=== PATIENT | female | born 1960 | race Two or more races ===

== ENCOUNTER → 2022-01-12 | Outpatient (CLI) | payer OTHER ==
[~2022-01-12] MED LIST: ALBUTEROL SULF 2.5 MG/0.5ML(0.5%) NEB SOLN ONE; SODIUM CHLORIDE 0.9 % NEB SOLN 3ML NEB ONE
== END | disposition home or self-care (01) ==
LOC: RT 10:03
PROVIDERS: ATTEND Internal Medicine Pulmonary Disease
DX: J44.9 Chronic obstructive pulmonary disease, unspecified (principal); R06.00 Dyspnea, unspecified
CPT/HCPCS: 94060; 94727; 94729

== ENCOUNTER 2024-11-04 07:49 | Inpatient (IN) | payer OTHER, MEDICAID ==
[~2024-11-04] VITALS: Ht 160 cm; Wt 86.0 kg
[2024-11-04] VITALS (7 sets, daily range): BP systolic 126–140; BP diastolic 71–78; PULSE 65–76; RESP 15–20; TEMP 97–98.2; O2SAT 97–100
--- NOTE | 2024-11-04 08:57 | ED.PDOC ---
History of Present Illness HPI Comments 64 year old female presents to the ED with a chief complaint of hyperglycemia onset today (11/04/24). Patient states she checked glucose this morning, it was reading "high." Patient states she was recently switched to different insulin, has been taking it. She noticed bilateral lower extremity swelling. She also states she fell about 1 week ago, since then has been experiencing back pain. Patient is a poor historian. PMHx CPOD, DM. Denies chest pain, shortness of breath, headache, blurry vision, nausea, vomiting, diarrhea. No other symptoms or modifying factors present at this time. Chief Complaint: Hyperglycemia Time Seen by MD: 08:35 Reviewed Notes: Medications, Allergies Allergies: Uncoded Allergies: VACCINES (Allergy, Unknown, 11/04/24) Information Source: Patient Mode of Arrival: Wheelchair Severity: Moderate Timing: Weeks Duration: Since onset Prehospital treatment: Pain Meds Past Medical History PAST MEDICAL HISTORY: COPD, DM Surgical History: Denies all surgeries FIELD CLERK History: No Pertinent FIELD CLERK History Family History Family History: Reviewed,noncontributory to illness, No family hx of Cancer, No family hx of DM, No family hx of Heart kirsty, No family hx of HTN, No family hx ofKidney kirsty, No family hx of Liver kirsty, No family hx of Lung kirsty, No family hx of Stroke Social History Smoker: Non-Smoker Alcohol: Denies ETOH Use Drugs: Denies Drug Use Lives In: Home Constitutional: denies: chills, diaphoresis, fatigue, fever, malaise, sweats, weakness, others EENTM: denies: blurred vision, double vision, ear bleeding, ear discharge, ear drainage, ear pain, ear ringing, eye pain, eye redness, hearing loss, mouth pain, mouth swelling, nasal discharge, nose bleeding, nose congestion, nose pain, photophobia, tearing, throat pain, throat swelling, voice changes, others Respiratory: denies: cough, hemoptysis, orthopnea, SOB at rest, shortness of breath, SOB with excertion, stridor, wheezing, others Cardiovascular: denies: chest pain, dizzy spells, diaphoresis, Dyspnea on exertion, edema, irregular heart beat, left arm pain, lightheadedness, palpitations, PND, syncope, others Gastrointestinal: denies: abdomen distended, abdominal pain, blood streaked bowels, constipated, diarrhea, dysphagia, difficulty swallowing, hematemesis, melena, nausea, poor appetite, poor fluid intake, rectal bleeding, rectal pain, vomiting, others Genitourinary: denies: abnormal vagina bleeding, burning, dyspareunia, dysuria, flank pain, frequency, hematuria, incontinence, pain, , vagina discharge, urgency, others Neurological: denies: dizziness, fainting, headache, left sided numbness, left sided weakness, numbness, paresthesia, pre-existing deficit, right sided numbness, right sided weakness, seizure, speech problems, tingling, tremors, weakness, others Musculoskeletal: reports: back pain, others (bilateral lower extremity swel ling); denies: gout, joint pain, joint swelling, muscle pain, muscle stiffness, neck pain Integumetry: denies: bruises, change in color, change in hair/nails, dryness, laceration, lesions, lumps, rash, wounds, others Allergic/Immunocompromised: denies: Difficulty Healing, Frequent Infections, Hives, Itching, others Hematologic/Lymphatic: denies: anemia, blood clots, easy bleeding, easy bruising, swollen glands, others Endocrine: reports: others (hyperglycemia); denies: excessive hunger, excessive sweating, excessive thirst, excessive urination, flushing, intolerance to cold, intolerance to heat, unexplained weight gain, unexplained weight loss Psychiatric: denies: anxiety, bipolar disorder, depression, hopeless, panic disorder, schizophrenia, sleepless, suicidal, others All Other Systems: Reviewed and Negative Physical Exam General Appearance: No Apparent Distress, Normal HEENT: Normal ENT Inspection, Pharynx Normal, TMs Normal Neck: Full Range of Motion, Non-Tender, Normal, Normal Inspection Respiratory: Chest Non-Tender, Lungs Clear, No Accessory Muscle Use, No Respiratory Distress, Normal Breath Sounds Cardiovascular: No Edema, No JVD, No Murmur, No Gallop, Normal Peripheral Pulses, Regular Rate/Rhythm Breast Exam: Deferred Gastrointestinal: No Organomegaly, Non Tender, No Pulsatile Mass, Normal Bowel Sounds, Soft Genitalia: Deferred Pelvic: Deferred Rectal: Deferred Extremities: No calf tenderness, Normal capillary refill, Normal inspection, Normal range of motion, Non-tender, No pedal edema Musculoskeletal : Apperance: Normal Neurologic: Alert, rn compliance II-XII nml as Tested, No Motor Deficits, Normal Affect, Normal Mood, No Sensory Deficits Cerebellar Function: Normal Reflexes: Normal Skin: Dry, Normal Color, Warm Lymphatic: No Adenopathy Was a procedure done? Was a procedure done?: No Differential Dx Considerations may include: Electrolyte abnormalities, infectious etiology, viral syndrome, uncontrolled diabetes X-Ray, Labs, Meds, VS Vital Signs Date Time Temp Pulse Resp B/P (MAP) Pulse Ox O2 Delivery O2 Flow Rate FiO2 11/04/24 10:58 75 118/57 (77) 100 11/04/24 08:48 76 16 94 Room Air 11/04/24 08:48 98.2 76 16 135/79 (97) 94 98.2 11/04/24 08:11 98.5 78 20 138/83 (101) 94 98.5 Lab Test 11/04/24 09:45 11/04/24 09:40 11/04/24 09:00 Range/Units Troponin I High Sensitivity 10 8 </=34 ng/L Urine Color Colorless Yellow Urine Clarity Clear Clear Urine pH 5.0 5.0-9.0 Urine Specific [place] 1.028 1.001-1.035 Urine Protein Negative Negative Urine Ketones Negative Negative Urine Blood Negative Negative /uL Urine Nitrite Negative Negative Urine Bilirubin Negative Negative Urine Urobilinogen Normal Negative mg/dL Urine Leukocyte Esterase Negative Negative /uL Urine RBC <1 0 - 4 /hpf Urine Microscopic WBC 1 0-5 /HPF Urine Squamous Epithelial Cells Few <5 /hpf Urine Bacteria None seen None Seen /hpf Urine Glucose 4+ H Normal mg/dL White Blood Count 4.9 4.4-10.8 10^3/uL Red Blood Count 4.54 4.0-5.20 10^6/uL Hemoglobin 13.7 12.2-16.2 g/dL Hematocrit 40.9 36.0-46.0 % Mean Corpuscular Volume 90.1 80.0-100.0 fL Mean Corpuscular Hemoglobin 30.2 28.0-32.0 pg Mean Corpuscular Hemoglobin Concent 33.5 32.0-36.0 g/dL Red Cell Distribution Width 13.5 11.8-14.3 % Platelet Count 156 140-450 10^3/uL Mean Platelet Volume 9.9 6.9-10.8 fL Neutrophils (%) (Auto) 71.0 37.0-80.0 % Lymphocytes (%) (Auto) 19.6 10.0-50.0 % Monocytes (%) (Auto) 8.5 0.0-12.0 % Eosinophils (%) (Auto) 0.5 0.0-7.0 % Basophils (%) (Auto) 0.4 0.0-2.0 % Neutrophils # (Auto) 3.5 1.6-8.6 10 ^3/uL Lymphocytes # (Auto) 1.0 0.4-5.4 10 ^3/uL Monocytes # (Auto) 0.4 0-1.3 10 ^3/uL Eosinophils # (Auto) 0 0-0.8 10 ^3/uL Basophils # (Auto) 0 0-0.2 10 ^3/uL Nucleated Red Blood Cells 0.1 % Sodium Level 136 136-145 mmol/L Potassium Level 4.4 3.5-5.1 mmol/L Chloride Level 101 98-107 mmol/L Carbon Dioxide Level 26 20-31 mmol/L Anion Gap 9 5-15 Blood Urea Nitrogen 21 9-23 mg/dL Creatinine 1.17 H 0.550-1.02 mg/dL Glomerular Filtration Rate Calc 51 >90 mL/min BUN/Creatinine Ratio 17.9 10.0-20.0 Serum Glucose 487 *H 74-106 mg/dL Calcium Level 11.1 H 8.7-10.4 mg/dL B-Type Natriuretic Peptide 85.42 0-100 pg/mL Current Medications Medications (Trade) Dose Ordered Sig/Yue Route Start Time Stop Time Status Last Admin Sodium Chloride 1,000 ml @ 1,000 mls/hr Q1H ONCE IV 11/04/24 10:00 11/04/24 10:59 DC 11/04/24 10:08 Insulin Human Regular (InsuLIN R) 5 units ONCE ONCE IV 11/04/24 10:00 11/04/24 10:01 DC 11/04/24 10:18 [place] [id number] Ph: [phone] DIAGNOSTIC IMAGING Diagnostic Imaging Report : [id number] Signed PATIENT: DOLORES HIGGINS ACCT: [id number] UNIT: [id number] : 1960 LOC: ER ROOM / BED: / AGE / SEX: 64 / F ADM STATUS: REG ER SERVICE 0850 ORDERING PHYSICIAN: KARL ROMANO MD PROCEDURE(s): CXRP - CHEST PORTABLE REASON: swelling ORDER NUMBER(s): [id number], ACCESSION NUMBER(s): [id number] CHEST RADIOGRAPH Indication: swelling Technique: Single frontal view of the chest was obtained Comparison: None FINDINGS: Lines and Tubes: None Lungs: Left basilar opacity. Right lung is clear. Pleura: No effusion. No pneumothorax. Cardiomediastinal contours: Unremarkable Bones: No acute osseous abnormality. IMPRESSION: 1. Left basilar opacity which may reflect atelectasis or pneumonia. ATED BY: LUZ MARINA MARCELO MD DICTATED DATE/TIME: 11/04/24 101 SIGNED BY: LUZ MARINA MARCELO MD SIGNED DATE/TIME: 11/04/24 101 CC: Time of 1ST Reevaluation: 09:05 Reevaluation 1ST: Unchanged Patient Education/Counseling: Diagnosis, Treatment, Prognosis Family Education/Counseling: No Family Present Departure 1 Departure Time of Disposition: 11:10 (Patient presents with a uncontrolled diabetes and left lower lobe pneumonia. Patient is clinically volume overloaded so we will not give a fluid bolus. We will admit patient for further workup and expert consultation) Impression: Primary Impression: Uncontrolled diabetes mellitus Qualified Codes: E11.65 - Type 2 diabetes mellitus with hyperglycemia Additional Impression: Left lower lobe pneumonia Qualified Codes: J18.9 - Pneumonia, unspecified organism Disposition: ADMITTED INPATIENT Admit to: Med Surg Condition: Serious Critical Care Note Critical Care Time?: Yes Critical care comment: Uncontrolled diabetes Authorized and Performed by: Karl Romano MD Total critical care time: Approximately 39 minutes Due to a high probability of clinically significant, life threatening deterioration, the patient required my highest level of preparedness to intervene emergently and I personally spent this critical care time directly and personally managing the patient. This critical care time included obtaining a history; examining the patient; pulse oximetry; ordering and review of studies; arranging urgent treatment with development of a management plan; evaluation of patient's response to treatment; frequent reassessment; and, discussions with other providers. This critical care time was performed to assess and manage the high probability of imminent, life-threatening deterioration that could result in multi-organ failure. It was exclusive of separately billable procedures and treating other patients and teaching time. Please see my other sections and the rest of the note for further information on patient assessment and treatment. Stability Stability form required: No I personally scribed for KARL ROMANO MD ([email or web address]) on 11/04/24 at 08:57. Electronically submitted by Sadie Simons ([email or web address]). I personally scribed for KARL ROMANO MD ([email or web address]) on 11/04/24 at 10:16. Electronically submitted by Sadie Simons ([email or web address]). KARL ROMANO MD Nov 04, 2024 08:57
[2024-11-04 09:10] LABS: Basophils # (auto) 0 10 ^3/uL (0-0.2); Basophils % (auto) 0.4 % (0.0-2.0); Eosinophils # (auto) 0 10 ^3/uL (0-0.8); Eosinophils % (auto) 0.5 % (0.0-7.0); Hematocrit 40.9 % (36.0-46.0); Hemoglobin 13.7 g/dL (12.2-16.2); Lymphocytes % (auto) 19.6 % (10.0-50.0); Mean Corpuscular Hemoglobin 30.2 pg (28.0-32.0); Mean Corpuscular Hgb Conc. 33.5 g/dL (32.0-36.0); Mean Corpuscular Volume 90.1 fL (80.0-100.0); Monocytes # (auto) 0.4 10 ^3/uL (0-1.3); Monocytes % (auto) 8.5 % (0.0-12.0); Neutrophils # (auto) 3.5 10 ^3/uL (1.6-8.6); Nucleated Red Blood Cells % 0.1 %; Platelet Count (auto) 156 10^3/uL (140-450); Red Blood Cells 4.54 10^6/uL (4.0-5.20); Red Cell Distribution Width 13.5 % (11.8-14.3); White Blood Cell 4.9 10^3/uL (4.4-10.8)
[2024-11-04 09:19] LABS: Anion Gap 9 (5-15); Carbon Dioxide 26 mmol/L (20-31); Chloride 101 mmol/L (98-107); Potassium 4.4 mmol/L (3.5-5.1); Sodium 136 mmol/L (136-145)
[2024-11-04 09:20] LABS: Calcium 11.1 mg/dL (8.7-10.4)
[2024-11-04 09:25] LABS: BUN/Creatinine Ratio 17.9 (10.0-20.0); Blood Urea Nitrogen 21 mg/dL (9-23)
[2024-11-04 09:35] LABS: Glucose 487 mg/dL (74-106)
[2024-11-04] MEDS: SODIUM CHLORIDE 0.9% 1,000 ML IV ONE (10:08)
--- NOTE | 2024-11-04 10:15 | DVH ---
CHEST RADIOGRAPH Indication: swelling Technique: Single frontal view of the chest was obtained Comparison: None FINDINGS: Lines and Tubes: None Lungs: Left basilar opacity. Right lung is clear. Pleura: No effusion. No pneumothorax. Cardiomediastinal contours: Unremarkable Bones: No acute osseous abnormality. IMPRESSION: 1. Left basilar opacity which may reflect atelectasis or pneumonia.
[2024-11-04] MEDS: InsuLIN REG 1unit/0.01ml Soln (100units/ml) IV ONE (10:18)
[2024-11-04 10:37] LABS: Urine Bacteria None Seen /hpf (None Seen)
[2024-11-04 10:45] LABS: Urine Blood Negative /uL (Negative); Urine Clarity Clear (Clear); Urine Color Colorless (Yellow); Urine Protein, UAD Negative (Negative); Urine Specific Gravity 1.028 (1.001-1.035); Urine Squamous Epithelial Cell FEW /hpf (<5); Urine Urobilinogen Normal (Negative); Urine WBC 1 /HPF (0-5)
[2024-11-04] MEDS: VANCOMYCIN 1GM/200ML PM 200 ML IV ONE (11:26)
[2024-11-04] MEDS: AZITHROMYCIN 250 MG TAB PO ONE (11:26)
[2024-11-04] MEDS: HYDROcodone-ACET 5/325MG TAB PO ONE (11:42)
[2024-11-04] MEDS: CEFEPIME 2GM/50ML NS 50 ML IV ONE (12:40)
[2024-11-04] MEDS ORDERED: ONDANSETRON HCL 4 MG/2 ML VIAL IV PRN (14:15)
[2024-11-04] MEDS ORDERED: DOCUSATE SOD 100 MG CAP PO PRN (14:15)
[2024-11-04] MEDS ORDERED: DEXTROSE (50%) 50ML SYRG IV PRN (14:15)
--- NOTE | 2024-11-04 14:48 | DVHHP2 ---
History of Present Illness Reason for Visit: elevated blood sugar levels History of Present Illness Radha Diaz is a 64-year-old female with past medical history of COPD, diabetes, and home oxygen use, who came to the hospital for elevated blood sugar levels. Patient states her problems began about 1 week ago when she fell. She states she was at home and attempted to go over a baby gate and fell onto her floor. She did not seek medical attention at the time because she just felt sore, she didn't think anything was broken. Ever since she fell she says her sugars have been increasing and she started becoming short of breath. On assessment patient is breathing shallow, she states it is due to pain. Patient doesn't think anything is broken, she is just experiencing generalized pain. She is having difficulty getting comfortable. Patient also states that she recently had surgery on both her eyes for glaucoma. She states she had one eye done in June and the other in July. During that time she was on steroids for a little over 3 weeks. She states she finished her steroids about 1 week ago. Pulmonary: COPD, Other (Home oxygen use) Endocrine: Diabetes, Hypothyroidism Past Surgical History: Other (left knee, glaucoma-bilateral eyes), Tubal Ligation, Tonsillectomy Family History: None Smoke: No ALCOHOL: none Drugs: None Lives: Alone Domestic Violence: Neg Review of Systems Constitutional: Yes: Other (elevated blood sugar levels); No: Fever, Chills, Sweats, Weakness, Malaise Eyes: No: Pain, Vision change, Conjunctivae inflammation, Eyelid inflammation, Other, Redness ENT: No: Ear pain, Ear discharge, Nose pain, Nose discharge, Nose congestion, Mouth pain, Mouth swelling, Throat pain, Throat swelling, Other Respiratory: Cough, Shortness of breath, SOB with excertion, Wheezing, Pleuritic Pain; No: Dry, Hemoptysis, Sputum, Wheezing, Other Cardiovascular: No: Chest Pain, Palpitations, Orthopnea, Paroxysmal Noc. Dyspnea, Edema, Lt Headedness, Other Gastrointestinal: No: Nausea, Vomiting, Abdominal Pain, Diarrhea, Constipation, Melena, Hematochezia, Other Genitourinary: No Dysuria, No Frequency, No Incontinence, No Hematuria, No Retention, No Other Musculoskeletal: No: other, neck pain, shoulder pain, arm pain, back pain, hand pain, leg pain, foot pain Skin: No: Rash, Lesions, Jaundice, Bruising, Other Neurological: No: Weakness, Numbness, Incoordination, Change in speech, Confusion, Seizures, Other Allergies: Uncoded Allergies: VACCINES (Allergy, Unknown, 11/04/24) Exam Vital Signs Vital Signs Date Time Temp Pulse Resp B/P (MAP) Pulse Ox O2 Delivery O2 Flow Rate FiO2 11/04/24 13:32 70 18 99 Nasal Cannula* 2 28 11/04/24 13:00 140/71 (94) 11/04/24 08:48 98.2 98.2 General Appearance: Alert, Oriented X3, Cooperative, mild distress HEENT: Atraumatic, PERRLA Respiratory: Other (Diminished breath sounds) Cardiovascular: Regular rate, Normal S1, Normal S2, No murmurs Abdominal: Normal bowel sounds, Soft, No tenderness, No hepatospenomegaly Extremities: No clubbing, No cyanosis, No edema, Normal pulses, No tenderness/swelling Skin: No rashes, No breakdown, No significant lesion Neuro: Normal gait, Normal speech, Strength at 5/5 X4 ext, Normal tone Psych/Mental Status: Mental status NL, Mood NL Labs/Xrays Labs Test 11/04/24 11:35 11/04/24 11:15 11/04/24 11:05 11/04/24 09:40 Range/Units Troponin I High Sensitivity 9 </=34 ng/L Lactic Acid Level 1.8 0.4-2.0 mmol/L POC Glucose 305 H 70-106 mg/dl Urine Color Colorless Yellow Urine Clarity Clear Clear Urine pH 5.0 5.0-9.0 Urine Specific [place] 1.028 1.001-1.035 Urine Protein Negative Negative Urine Ketones Negative Negative Urine Blood Negative Negative /uL Urine Nitrite Negative Negative Urine Bilirubin Negative Negative Urine Urobilinogen Normal Negative mg/dL Urine Leukocyte Esterase Negative Negative /uL Urine RBC <1 0 - 4 /hpf Urine Microscopic WBC 1 0-5 /HPF Urine Squamous Epithelial Cells Few <5 /hpf Urine Bacteria None seen None Seen /hpf Urine Glucose 4+ H Normal mg/dL Test 11/04/24 09:00 Range/Units White Blood Count 4.9 4.4-10.8 10^3/uL Red Blood Count 4.54 4.0-5.20 10^6/uL Hemoglobin 13.7 12.2-16.2 g/dL Hematocrit 40.9 36.0-46.0 % Mean Corpuscular Volume 90.1 80.0-100.0 fL Mean Corpuscular Hemoglobin 30.2 28.0-32.0 pg Mean Corpuscular Hemoglobin Concent 33.5 32.0-36.0 g/dL Red Cell Distribution Width 13.5 11.8-14.3 % Platelet Count 156 140-450 10^3/uL Mean Platelet Volume 9.9 6.9-10.8 fL Neutrophils (%) (Auto) 71.0 37.0-80.0 % Lymphocytes (%) (Auto) 19.6 10.0-50.0 % Monocytes (%) (Auto) 8.5 0.0-12.0 % Eosinophils (%) (Auto) 0.5 0.0-7.0 % Basophils (%) (Auto) 0.4 0.0-2.0 % Neutrophils # (Auto) 3.5 1.6-8.6 10 ^3/uL Lymphocytes # (Auto) 1.0 0.4-5.4 10 ^3/uL Monocytes # (Auto) 0.4 0-1.3 10 ^3/uL Eosinophils # (Auto) 0 0-0.8 10 ^3/uL Basophils # (Auto) 0 0-0.2 10 ^3/uL Nucleated Red Blood Cells 0.1 % Sodium Level 136 136-145 mmol/L Potassium Level 4.4 3.5-5.1 mmol/L Chloride Level 101 98-107 mmol/L Carbon Dioxide Level 26 20-31 mmol/L Anion Gap 9 5-15 Blood Urea Nitrogen 21 9-23 mg/dL Creatinine 1.17 H 0.550-1.02 mg/dL Glomerular Filtration Rate Calc 51 >90 mL/min BUN/Creatinine Ratio 17.9 10.0-20.0 Serum Glucose 487 *H 74-106 mg/dL Calcium Level 11.1 H 8.7-10.4 mg/dL B-Type Natriuretic Peptide 85.42 0-100 pg/mL CHEST RADIOGRAPH FINDINGS: Lines and Tubes: None Lungs: Left basilar opacity. Right lung is clear. Pleura: No effusion. No pneumothorax. Cardiomediastinal contours: Unremarkable Bones: No acute osseous abnormality. IMPRESSION: 1. Left basilar opacity which may reflect atelectasis or pneumonia. Assessment/Plan Assessment/Plan Assessment: Left lower lobe pneumonia, Uncontrolled diabetes, COPD, Hypothyroidism, Plan: Admit to Med-Surg, IV antibiotics, IV steroids, Breathing treatments, Supplemental oxygen as needed, Accu checks Q AC&HS with sliding scale, A1c, Home medications reconciled, Plan discussed with: Patient My Orders Orders - MYAH CHU Procedure Category Date Status Time Admit ADMIT 11/04/24 Verified 14:03 Code Status CODE 11/04/24 Verified 14:03 2 Gm Sodium Diet DIET 11/04/24 Verified Dinner Ondansetron Hcl PHA 11/04/24 Verified (Zofran) 14:15 Date of Service: Nov 04, 2024 Billing Provider: MYAH CHU Common Visit Codes: [id number] INP/OBS CARE (MOD) MYAH CHU Nov 04, 2024 14:48
[2024-11-04] MEDS: ACCU-CHEK COMFORT CURVE STRIP VI SCH (17:00)
[2024-11-04] MEDS ORDERED: ALBUAER3 IN (17:35)
[2024-11-04] MEDS ORDERED: POTA-228 PO (17:35)
[2024-11-04] MEDS ORDERED: ASPI1TAB20 PO (17:35)
[2024-11-04] MEDS ORDERED: FLUT1AER17 IN (17:35)
[2024-11-04] MEDS ORDERED: ALEN70TA74 PO (17:35)
[2024-11-04] MEDS ORDERED: FURO20TA4 GT (17:35)
[2024-11-04] MEDS ORDERED: CITA-77 PO (17:35)
[2024-11-04] MEDS ORDERED: IPRAAER6 IN (17:35)
[2024-11-04] MEDS ORDERED: INSU1INJ19 SC (17:42)
[2024-11-04] MEDS ORDERED: TIZA-206 PO (17:42)
[2024-11-04] MEDS ORDERED: LEVO125T7 PO (17:44)
[2024-11-04] MEDS ORDERED: TIZANIDINE HYDROCHLORIDE 2 MG PO PRN (17:45)
[2024-11-04] MEDS: ACETAMINOPHEN 325 MG TAB PO PRN (17:50)
[2024-11-04] MEDS: ALBUTEROL SULF 2.5 MG/0.5ML(0.5%) NEB SOLN NEB SCH (17:57)
[2024-11-04] MEDS: IPRATROPIUM BROM 0.5 MG/2.5ML INH SOL NEB SCH (17:58)
[2024-11-04] MEDS: InsuLIN REG 1unit/0.01ml Soln (100units/ml) SC SCH ×2 (18:11→21:09)
[2024-11-04] MEDS: INSULIN LANTUS (GLARGINE) 1 /0.01ml (100units/ml) SC SCH (21:10)
[2024-11-04] MEDS: methylPREDNISolone SOD SUCC 40 MG/ML VL IV SCH (21:13)
[2024-11-04] MEDS: HYDROcodone-ACET 5/325MG TAB PO PRN (21:13)
[2024-11-04] MEDS: CEFEPIME 1GM/ 50ML 50 ML IV SCH (21:14)
[2024-11-04] MEDS: KETOROLAC TROMETH 30 MG/ML 1ML VIAL IV ONE (22:45)
[2024-11-05] VITALS (15 sets, daily range): BP systolic 107–145; BP diastolic 61–87; PULSE 59–89; RESP 15–20; TEMP 97.3–98; O2SAT 95–100
[2024-11-05] MEDS: LEVOTHYROXINE SODIUM 50 MCG TAB PO SCH (06:30)
[2024-11-05 07:44] LABS: Basophils # (auto) 0 10 ^3/uL (0-0.2); Basophils % (auto) 0.2 % (0.0-2.0); Eosinophils # (auto) 0 10 ^3/uL (0-0.8); Eosinophils % (auto) 0.1 % (0.0-7.0); Hematocrit 40.8 % (36.0-46.0); Hemoglobin 13.5 g/dL (12.2-16.2); Lymphocytes # (auto) 0.6 10 ^3/uL (0.4-5.4); Lymphocytes % (auto) 13.4 % (10.0-50.0); Mean Corpuscular Hemoglobin 30.1 pg (28.0-32.0); Mean Corpuscular Hgb Conc. 33.1 g/dL (32.0-36.0); Mean Corpuscular Volume 90.8 fL (80.0-100.0); Monocytes # (auto) 0.1 10 ^3/uL (0-1.3); Monocytes % (auto) 2.2 % (0.0-12.0); Neutrophils # (auto) 3.9 10 ^3/uL (1.6-8.6); Neutrophils % (auto) 84.1 % (37.0-80.0); Nucleated Red Blood Cells % 0.1 %; Platelet Count (auto) 151 10^3/uL (140-450); Red Blood Cells 4.49 10^6/uL (4.0-5.20); Red Cell Distribution Width 13.4 % (11.8-14.3); White Blood Cell 4.6 10^3/uL (4.4-10.8)
[2024-11-05 08:14] LABS: Alanine Aminotransferase 19 U/L (7-40); Anion Gap 9 (5-15); BUN/Creatinine Ratio 19.8 (10.0-20.0); Blood Urea Nitrogen 20 mg/dL (9-23); Carbon Dioxide 24 mmol/L (20-31); Chloride 104 mmol/L (98-107); Sodium 137 mmol/L (136-145)
[2024-11-05 08:15] LABS: Total Protein 6.4 g/dL (5.7-8.2)
[2024-11-05 08:16] LABS: Albumin 4.1 g/dL (3.2-4.8); Aspartate Aminotransferase 13 U/L (13-40)
[2024-11-05 08:17] LABS: Bilirubin, Total 0.4 mg/dL (0.2-1.0)
[2024-11-05 08:22] LABS: Alkaline Phosphatase 132 U/L (46-116); Calcium 10.9 mg/dL (8.7-10.4); Glucose 320 mg/dL (74-106); Potassium 5.4 mmol/L (3.5-5.1)
[2024-11-05] MEDS ORDERED: AZITHROMYCIN 500MG/ 250ML 250 ML IV SCH (10:00)
[2024-11-05] MEDS ORDERED: FLUTICASONE UMECLIDINIUM VILAN IN SCH (10:00)
--- NOTE | 2024-11-05 10:53 | DVHPN2 ---
Progress Note Date Seen: Nov 05, 2024 Medical Necessity Reason Pt with a Central, PICC or Fol: No Subjective Patient reports: No new complaints Review of Systems: HEENT:Normal, CVS:Normal, RESPIRATORY:Normal, GI:Normal, :Normal, MSK:Normal, NEURO:Normal Objective vital signs Vital Sign Date Time Temp Pulse Resp B/P (MAP) Pulse Ox O2 Delivery O2 Flow Rate FiO2 11/05/24 05:50 67 18 100 11/05/24 05:37 Nasal Cannula* 3 32 11/05/24 05:00 98.0 129/79 (96) 98.0 Total Intake and Output 11/04/24 11/04/24 11/05/24 15:00 23:00 07:00 Intake Total 1200 ml 590 ml 345 ml Output Total 200 ml Balance 1200 ml 590 ml 145 ml medications Current Medications Medications Dose Ordered Sig/Yue Route Start Time Stop Time Status Last Admin Dose Admin Ondansetron HCl 4 mg Q4HP PRN IV 11/04/24 14:15 Docusate Sodium 100 mg BIDPRN PRN PO 11/04/24 14:15 Acetaminophen 650 mg Q6HP PRN PO 11/04/24 14:15 11/04/24 17:50 650 MG Diagnostic Test (Pha) 1 strip ACHS 11/04/24 17:00 11/05/24 06:30 1 STRIP Insulin Human Regular HS SC 11/04/24 22:00 11/04/24 21:09 10 UNITS Insulin Human Regular AC SC 11/04/24 17:00 11/05/24 06:24 12 UNITS Dextrose 50 ml UD PRN IV 11/04/24 14:15 Ipratropium [place] 0.5 mg Q6HWA NEB 11/04/24 18:00 11/05/24 05:37 0.5 MG Albuterol 2.5 mg Q6HWA NEB 11/04/24 18:00 11/05/24 05:37 2.5 MG Azithromycin 250 ml @ 125 mls/hr DAILY IV 11/05/24 10:00 Cefepime HCl 50 ml @ 12.5 mls/hr Q12HR IV 11/04/24 22:00 11/04/24 21:14 12.5 MLS/HR Methylprednisolone Sodium Succinate 40 mg BID IV 11/04/24 22:00 11/04/24 21:13 40 MG Aspirin 81 mg DAILY PO 11/05/24 10:00 Citalopram Hydrobromide 20 mg DAILY PO 11/05/24 10:00 Patient Own Medication 1 aer DAILY IN 11/05/24 10:00 Insulin Glargine 20 units HS SC 11/04/24 22:00 11/04/24 21:10 20 UNITS Patient Own Medication 2 mg HSPRN PRN PO 11/04/24 17:45 Levothyroxine Sodium 150 mcg QAM PO 11/05/24 07:00 11/05/24 06:30 150 MCG Acetaminophen/ Hydrocodone Bitart 1 tab Q6HPRN PRN PO 11/04/24 20:30 11/05/24 06:34 1 TAB Examination: GENERAL:Normal, HEENT:Normal, NECK:Normal, LUNGS:Normal, CVS:Normal, ABDOMEN:Normal, MSK:Normal, SKIN:Normal, NEURO:Normal, :Normal laboratory and microbiology Laboratory Tests 11/05/24 05:20 Test 11/05/24 05:20 Range/Units Serum Glucose 320 H 74-106 mg/dL Problem List/Assessment/Plan Problem List/Assessment/Plan #1 s/p fall with chest pain/back pain: iv pain meds, ct chest #2 copd with exacerbation: steroids, bronchodilators #3 ? left pneumonia: iv antibiotics #4 obesity #5 uncontrolled dm: lantus, ssi #6 hypothyroidism: check tsh Plan discussed with: Patient Date of Service: Nov 05, 2024 Billing Provider: DAVID YOUSSEF MD Common Visit Codes: [id number] INP/OBS CARE(HIGH) Secondary Visit Codes: [id number] CARE PLAN 30 MINUTES DAVID YOUSSEF MD Nov 05, 2024 10:53
[2024-11-05] MEDS ORDERED: MORPHINE SULFATE INJ 2 MG/ml SYRG IV PRN (11:00)
[2024-11-05] MEDS: ASPirin-EC 81 mg tab PO SCH (11:38)
[2024-11-05] MEDS: CITALOPRAM HYDROBR 20 MG TAB PO SCH (11:38)
[2024-11-05] MEDS: KETOROLAC TROMETH 30 MG/ML 1ML VIAL IV PRN (11:44)
--- NOTE | 2024-11-05 17:12 | DVH ---
Indication: copd, rib fractures Technique: CT axial images of the chest are obtained without contrast. Coronal and sagittal reformats were obtained. Radiation Dose Information: CTDI volume is 13.51 mGy. Dose-length product is 475.78 mGy*cm Comparison: None FINDINGS: Trachea patent. No pneumothorax. Pulmonary emphysematous changes. Bilateral atelectasis. Heart normal in size. Aortic atherosclerotic disease. There is a large left pericardial hypodense les ion measuring 4.7 x 5.5 by 3.9 cm. Hounsfield units of 6. No supraclavicular or axillary lymphadenopathy. Small hiatal hernia. 1 cm right 7th right rib sclerotic lesion. No aggressive osseous process. [id number] thoracic d egenerative disc disease. IMPRESSION: 1. 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 This can be fur ther evaluated with echocardiography, MRI of the chest with and without contrast 2. Pulmonary emphysematous changes. 3. Atherosclerotic disease. 4. Other findings as described.
[2024-11-05] MEDS: guaiFENesin-DM 100/10mg/5ml SYR PO PRN (18:04)
[2024-11-05] MEDS: methylPREDNISolone SOD SUCC 40 MG/ML VL IV SCH (21:54)
[2024-11-06] VITALS (16 sets, daily range): BP systolic 103–148; BP diastolic 63–87; PULSE 57–97; RESP 14–87; TEMP 97.3–97.9; O2SAT 92–100
[2024-11-06 06:47] LABS: Basophils # (auto) 0 10 ^3/uL (0-0.2); Basophils % (auto) 0.1 % (0.0-2.0); Eosinophils # (auto) 0 10 ^3/uL (0-0.8); Eosinophils % (auto) 0.1 % (0.0-7.0); Hematocrit 40.5 % (36.0-46.0); Hemoglobin 13.5 g/dL (12.2-16.2); Lymphocytes # (auto) 0.6 10 ^3/uL (0.4-5.4); Lymphocytes % (auto) 9.1 % (10.0-50.0); Mean Corpuscular Hemoglobin 30.2 pg (28.0-32.0); Mean Corpuscular Hgb Conc. 33.3 g/dL (32.0-36.0); Mean Corpuscular Volume 90.7 fL (80.0-100.0); Monocytes # (auto) 0.2 10 ^3/uL (0-1.3); Monocytes % (auto) 2.7 % (0.0-12.0); Neutrophils # (auto) 6.2 10 ^3/uL (1.6-8.6); Nucleated Red Blood Cells % 0.1 %; Platelet Count (auto) 177 10^3/uL (140-450); Red Blood Cells 4.47 10^6/uL (4.0-5.20); Red Cell Distribution Width 13.2 % (11.8-14.3); White Blood Cell 7.1 10^3/uL (4.4-10.8)
[2024-11-06 06:48] LABS: Anion Gap 6 (5-15); Carbon Dioxide 27 mmol/L (20-31); Chloride 102 mmol/L (98-107)
[2024-11-06 06:51] LABS: Calcium 10.9 mg/dL (8.7-10.4); Sodium 135 mmol/L (136-145)
[2024-11-06 06:54] LABS: BUN/Creatinine Ratio 19.1 (10.0-20.0); Blood Urea Nitrogen 18 mg/dL (9-23)
[2024-11-06 07:02] LABS: Glucose 396 mg/dL (74-106)
[2024-11-06] MEDS: cefTRIAXone 1GM/50ML D5W 50 ML IV SCH (08:32)
[2024-11-06] MEDS: AZITHROMYCIN 250 MG TAB PO SCH (10:15)
--- NOTE | 2024-11-06 10:38 | DVHPN2 ---
Progress Note Date Seen: Nov 06, 2024 Medical Necessity Reason Pt with a Central, PICC or Fol: No Subjective Patient reports: No new complaints Review of Systems: HEENT:Normal, CVS:Normal, RESPIRATORY:Normal, GI:Normal, :Normal, MSK:Normal, NEURO:Normal Objective vital signs Vital Sign Date Time Temp Pulse Resp B/P (MAP) Pulse Ox O2 Delivery O2 Flow Rate FiO2 11/06/24 08:30 97.3 62 14 114/73 (87) 98 97.3 11/06/24 08:00 Nasal Cannula* 2 28 Total Intake and Output 11/05/24 11/05/24 11/06/24 15:00 23:00 07:00 Intake Total 790 ml 300 ml 460 ml Output Total 400 ml Balance 790 ml -100 ml 460 ml medications Current Medications Medications Dose Ordered Sig/Yue Route Start Time Stop Time Status Last Admin Dose Admin Ondansetron HCl 4 mg Q4HP PRN IV 11/04/24 14:15 Docusate Sodium 100 mg BIDPRN PRN PO 11/04/24 14:15 Acetaminophen 650 mg Q6HP PRN PO 11/04/24 14:15 11/06/24 08:33 650 MG Diagnostic Test (Pha) 1 strip ACHS 11/04/24 17:00 11/06/24 06:08 1 STRIP Insulin Human Regular HS SC 11/04/24 22:00 11/05/24 21:50 10 UNITS Insulin Human Regular AC SC 11/04/24 17:00 11/06/24 06:10 15 UNITS Dextrose 50 ml UD PRN IV 11/04/24 14:15 Ipratropium [place] 0.5 mg Q6HWA NEB 11/04/24 18:00 11/06/24 06:21 0.5 MG Albuterol 2.5 mg Q6HWA NEB 11/04/24 18:00 11/06/24 06:21 2.5 MG Aspirin 81 mg DAILY PO 11/05/24 10:00 11/06/24 10:19 81 MG Citalopram Hydrobromide 20 mg DAILY PO 11/05/24 10:00 Insulin Glargine 20 units HS SC 11/04/24 22:00 11/05/24 21:52 20 UNITS Levothyroxine Sodium 150 mcg QAM PO 11/05/24 07:00 11/06/24 06:12 150 MCG Acetaminophen/ Hydrocodone Bitart 1 tab Q6HPRN PRN PO 11/04/24 20:30 11/05/24 06:34 1 TAB Methylprednisolone Sodium Succinate 20 mg BID IV 11/05/24 22:00 11/06/24 10:16 20 MG Azithromycin 500 mg DAILY PO 11/06/24 10:00 11/06/24 10:15 500 MG Ceftriaxone Sodium 50 ml @ 100 mls/hr DAILY@09 IV 11/06/24 09:00 11/06/24 08:32 100 MLS/HR Morphine Sulfate 2 mg Q4HPRN PRN IV 11/05/24 11:00 UNV Ketorolac Tromethamine 15 mg Q6HPRN PRN IV 11/05/24 11:00 11/10/24 10:59 11/06/24 04:02 15 MG Morphine Sulfate 2 mg Q4HPRN PRN IV 11/05/24 11:30 Guaifenesin/ Dextromethorphan 10 ml Q4HP PRN PO 11/05/24 12:15 11/06/24 10:18 10 ML Examination: GENERAL:Normal, HEENT:Normal, NECK:Normal, LUNGS:Normal, LUNGS:Abnormal (on oxygen), CVS:Normal, ABDOMEN:Normal, MSK:Normal, SKIN:Normal, NEURO:Normal, :Normal laboratory and microbiology Laboratory Tests 11/06/24 05:25 Test 11/06/24 05:25 Range/Units Serum Glucose 396 H 74-106 mg/dL Microbiology Date/Time Source Procedure Growth Status 11/04/24 11:35 Blood Blood Culture - Preliminary NO GROWTH AFTER 24 HOURS OF INCUBATION. Resulted Problem List/Assessment/Plan Problem List/Assessment/Plan #1 s/p fall with chest pain/back pain: iv pain meds, ct chest #2 copd with exacerbation: steroids, bronchodilators #3 ? left pneumonia: iv antibiotics #4 obesity #5 uncontrolled dm: lantus, ssi #6 hypothyroidism: check tsh #7 large ?pericardial cyst: echo, cardio eval advance care planning- full code- time spent 18 mins Plan discussed with: Patient My Orders My Orders Orders - DAVID YOUSSEF MD Procedure Category Date Status Time Methylprednisolone PHA 11/05/24 In Process Sod Succ (Solu Medrol 22:00 Azithromycin Tablet PHA 11/06/24 In Process (Zithromax Tablet) 10:00 Ceftriaxone 1gm/50ml PHA 11/06/24 In Process D5w (Rocephin) 09:[address] 11/05/24 Resulted 10:46 Ketorolac Injection PHA 11/05/24 In Process (Toradol Injection) 11:00 Morphine Sulfate PHA 11/05/24 In Process Injection 11:30 Guaifenesin-Dextromet PHA 11/05/24 In Process Liquid (Robitussin 12:15 Echo 2d Mode Cardiac US 11/06/24 Logged DOP 10:29 Date of Service: Nov 06, 2024 Billing Provider: DAVID YOUSSEF MD Common Visit Codes: [id number] INP/OBS CARE(HIGH) Secondary Visit Codes: [id number] CARE PLAN 30 MINUTES DAVID YOUSSEF MD Nov 06, 2024 10:38
--- NOTE | 2024-11-06 11:13 | DVHINCON2 ---
GIULIANA JORDAN [facility] 11/06/24 1113: Date Seen: Nov 06, 2024 Referring Physician MD Gustabo Reason for Consultation Pericardial cyst History of Present Illness This is a 64-year-old female who presented to the emergency room with a chief complaint of hyperglycemia. The patient initially presented with a complain of hyperglycemia and also reporting a mechanical fall injury where she stepped over a safety gate (use to prevent her dog from entering her room) causing a fall injury where she fell forward developing chest wall pain across the chest area and bilateral shoulders. The pain was reproducible upon palpation. She underwent a CT chest revealing a pericardial hypodense lesion measuring 4.7 x 5.5 cm for which Cardiology has been consulted for further evaluation. The patient denies any cardiac history in the past. She denies any cardiac symptoms. Significant medical history includes insulin-dependent diabetes mellitus, thyroid cancer status post complete thyroidectomy, COPD with home O2 dependence, osteoporosis, chronic back pain, history of tobacco use including 30 pack-years, and obesity. Past Medical History Past medical history reviewed. No other significant than mentioned above. Past Surgical History Complaint thyroidectomy, 2010 Hysterectomy Bilateral cataracts, 2024 Left foot Tonsillectomy Family History: FH: cancer G8 FATHER FH: ovarian cancer G8 MOTHER Family History Family history reviewed. Social History Denies the use of illicit drugs, alcohol, or tobacco use. Reports history of tobacco dependence x 30 pack-years. Patient quit 10 years ago. Allergies: Uncoded Allergies: VACCINES (Allergy, Unknown, 11/07/24) Home Meds Reported Medications Levothyroxine Sodium (Levothyroxine Sodium) 125 Mcg Tab, 150 MCG PO DAILY, TAB 11/04/24 Tizanidine Hydrochloride (Tizanidine Hydrochloride) 2 Mg Tab, 2 MG PO HSPRN PRN, TAB 11/04/24 Insulin Glargine (Basaglar Kwikpen) 100 Unit/Ml Inj, 20 UNIT SC HS, INJ 11/04/24 Ipratropium-Albuterol (COMBIVENT RESPIMAT) Respimat Aer, 1 IN QID, AER 11/04/24 Alendronate Sodium (Alendronate Sodium) 70 Mg Tab, 1 TAB PO QWEEKLY, #4 TAB 3 Refills 11/04/24 Citalopram Hydrobromide (Citalopram Hydrobromide) 20 Mg Tab, 20 MG PO DAILY, TAB 11/04/24 Furosemide (Furosemide) 20 Mg Tab, 20 MG GT DAILY, TAB 11/04/24 Brgqvuhkjly-Cmxjqbeuohxx-Gfkjr (Trelegy Ellipta 200-62.5-25 Mcg/INH) 1 Aer Aer, 1 AER IN DAILY, AER 11/04/24 Albuterol Sulfate (VENTOLIN MDI) 90 Mcg Ih, 90 MCG IN Q4HPRN PRN, INH 11/04/24 Potassium Chloride (Potassium Chloride ER) 10 Meq Tab, 10 MEQ PO DAILY, TAB 11/04/24 Aspirin (Aspir-81) 81 Mg Tab, 1 TAB PO DAILY, #30 TAB 5 Refills 11/04/24 Home Meds Home medications reviewed. Current Medications Current Medications Medications (Trade) Dose Ordered Sig/Yue Route PRN Reason Start Time Stop Time Status Last Admin Methylprednisolone Sodium Succinate (Solu Medrol) 20 mg BID IV 11/05/24 22:00 11/06/24 10:35 DC 11/06/24 10:16 Azithromycin (Zithromax Tablet) 500 mg DAILY PO 11/06/24 10:00 11/06/24 10:15 Ceftriaxone Sodium 50 ml @ 100 mls/hr DAILY@09 IV 11/06/24 09:00 11/06/24 08:32 Morphine Sulfate 2 mg Q4HPRN PRN IV SEVERE PAIN (7-10 PAIN SCALE) 11/05/24 11:00 UNV Ketorolac Tromethamine (Toradol Injection) 15 mg Q6HPRN PRN IV SEVERE PAIN (7-10 PAIN SCALE) 11/05/24 11:00 11/10/24 10:59 11/06/24 04:02 Morphine Sulfate 2 mg Q4HPRN PRN IV SEVERE PAIN (7-10 PAIN SCALE) 11/05/24 11:30 Guaifenesin/ Dextromethorphan (Robitussin-Dm Liquid) 10 ml Q4HP PRN PO FOR COUGH 11/05/24 12:15 11/06/24 10:18 Prednisone 20 mg DAILY PO 11/07/24 10:00 UNV Review of Systems Constitutional: No symptom reported Ears, Nose, & Throat: No symptom reported Eyes: No symptom reported Neurological: No symptoms reported Pulmonary/Respiratory: No symptom reported Cardiovascular: No symptom reported Gastrointestinal: No symptom reported Genitourinary: No symptom reported Musculoskeletal: Chest wall pain, bilateral shoulder pain Skin: No symptom reported Psychiatric: No symptom reported Endocrine: No symptom reported Hemotologic/Lymphatic: No symptom reported Vital Signs Vital Signs Date Time Temp Pulse Resp B/P (MAP) Pulse Ox O2 Delivery O2 Flow Rate FiO2 11/06/24 08:30 97.3 62 14 114/73 (87) 98 97.3 11/06/24 08:00 Nasal Cannula* 2 28 Physical Exam General Appearance: Cooperative. Well developed. Obese. In no acute distress Head Exam: Normal inspection Neck Exam: Normal inspection. Non-tender. Normal alignment Pulmonary/Respiratory: Chest tender to touch across and to bilateral shoulders. Clear bilateral breath sounds. On O2 via NC Cardiovascular/Chest: Regular rate and rhythm. S1, S2. NSR. No murmurs. No JVD. Peripheral Pulses: 2+ Radial (R). 2+ Radial (L). 2+ Pedal (R). 2+ Pedal (L) Abdominal Exam: Normal bowel sounds. Soft. Nontender. Ankle Exam: Negative ankle edema Lower extremities: Negative lower extremity edema Neuro/Mental Status: A&O x4. Coherent Thoughts/Psych: Normal thought pattern. Appropriate mood and affect. Good judgement and insight Appearance: In no acute distress Skin Exam: Normal inspection. Normal color. Warm. Dry Labs/Diagnostic Data Labs Test 11/06/24 05:29 11/06/24 05:25 11/05/24 05:20 11/04/24 11:35 Range/Units POC Glucose 392 H 70-106 mg/dl White Blood Count 7.1 # 4.4-10.8 10^3/uL Red Blood Count 4.47 4.0-5.20 10^6/uL Hemoglobin 13.5 12.2-16.2 g/dL Hematocrit 40.5 36.0-46.0 % Mean Corpuscular Volume 90.7 80.0-100.0 fL Mean Corpuscular Hemoglobin 30.2 28.0-32.0 pg Mean Corpuscular Hemoglobin Concent 33.3 32.0-36.0 g/dL Red Cell Distribution Width 13.2 11.8-14.3 % Platelet Count 177 140-450 10^3/uL Mean Platelet Volume 9.9 6.9-10.8 fL Neutrophils (%) (Auto) 88.0 H 37.0-80.0 % Lymphocytes (%) (Auto) 9.1 L 10.0-50.0 % Monocytes (%) (Auto) 2.7 0.0-12.0 % Eosinophils (%) (Auto) 0.1 0.0-7.0 % Basophils (%) (Auto) 0.1 0.0-2.0 % Neutrophils # (Auto) 6.2 1.6-8.6 10 ^3/uL Lymphocytes # (Auto) 0.6 0.4-5.4 10 ^3/uL Monocytes # (Auto) 0.2 0-1.3 10 ^3/uL Eosinophils # (Auto) 0 0-0.8 10 ^3/uL Basophils # (Auto) 0 0-0.2 10 ^3/uL Nucleated Red Blood Cells 0.1 % Sodium Level 135 L 136-145 mmol/L Potassium Level 5.0 3.5-5.1 mmol/L Chloride Level 102 98-107 mmol/L Carbon Dioxide Level 27 20-31 mmol/L Anion Gap 6 5-15 Blood Urea Nitrogen 18 9-23 mg/dL Creatinine 0.94 0.550-1.02 mg/dL Glomerular Filtration Rate Calc 67 >90 mL/min BUN/Creatinine Ratio 19.1 10.0-20.0 Serum Glucose 396 H 74-106 mg/dL Calcium Level 10.9 H 8.7-10.4 mg/dL Thyroid Stimulating Hormone (TSH) 0.29 L 0.55-4.78 uIU/mL Hemoglobin A1c 11.6 H <5.7 % A1C Total Bilirubin 0.4 0.2-1.0 mg/dL Aspartate Amino Transferase (AST) 13 13-40 U/L Alanine Aminotransferase (ALT) 19 7-40 U/L Alkaline Phosphatase 132 H 46-116 U/L Total Protein 6.4 5.7-8.2 g/dL Albumin 4.1 3.2-4.8 g/dL Troponin I High Sensitivity 9 </=34 ng/L Test 11/04/24 11:15 11/04/24 09:40 11/04/24 09:00 Range/Units Lactic Acid Level 1.8 0.4-2.0 mmol/L Urine Color Colorless Yellow Urine Clarity Clear Clear Urine pH 5.0 5.0-9.0 Urine Specific [place] 1.028 1.001-1.035 Urine Protein Negative Negative Urine Ketones Negative Negative Urine Blood Negative Negative /uL Urine Nitrite Negative Negative Urine Bilirubin Negative Negative Urine Urobilinogen Normal Negative mg/dL Urine Leukocyte Esterase Negative Negative /uL Urine RBC <1 0 - 4 /hpf Urine Microscopic WBC 1 0-5 /HPF Urine Squamous Epithelial Cells Few <5 /hpf Urine Bacteria None seen None Seen /hpf Urine Glucose 4+ H Normal mg/dL B-Type Natriuretic Peptide 85.42 0-100 pg/mL Microbiology Date/Time Source Procedure Growth Status 11/04/24 11:35 Blood Blood Culture - Preliminary NO GROWTH AFTER 24 HOURS OF INCUBATION. Resulted Assessment Left pericardial lesion Mechanical fall injury with chest wall pain Insulin-dependent diabetes mellitus, HgbA1C 11.6% Thyroid cancer status post complete thyroidectomy COPD with home O2 dependence Obesity Plan/Recommendation (Dr. Polo) The patient who experienced a mechanical fall injury underwent a CT chest revealing a left pericardial hypodense lesion measuring 4.7 x 5.5 cm for which she will undergo a transthoracic echocardiogram for further evaluation. The patient is cardiac stable and asymptomatic. This may be an incidental finding, doubt it to be secondary to trauma. Asymptomatic pericardial cysts are often managed conservatively. Symptomatic pericardial cysts may require aspiration vs surgical resection. Further recommendations to follow. Thank you for allowing us to participate in this patient's care. Please call if you have any questions or concerns. This medical document was created using an electronic medical record system with voice recognition software and computerized dictation system. Although this document has been carefully reviewed, there might still be some phonetic and typographical errors. Occasional wrong-word or ``sound-alike substitutions may have occurred due to the inherent limitations of voice recognition software. These areas are purely typographical due to imperfections of the software programs and do not reflect any compromise in the patient's medical care. Please read the chart carefully and recognize, using context, where these substitutions have occurred. Plan discussed with: Patient, Other NYHA Physical activity limitations: NA Date of Service: Nov 06, 2024 Billing Provider: GIULIANA JORDAN [facility] Cardiology Common Codes: [id number] INP/OBS CARE (High) THEO POLO MD 11/08/24 1021: Date Seen: Nov 06, 2024 Family History: FH: cancer G8 FATHER FH: ovarian cancer G8 MOTHER Allergies: Uncoded Allergies: VACCINES (Allergy, Unknown, 11/07/24) Home Meds Reported Medications Levothyroxine Sodium (Levothyroxine Sodium) 125 Mcg Tab, 150 MCG PO DAILY, TAB 11/04/24 Tizanidine Hydrochloride (Tizanidine Hydrochloride) 2 Mg Tab, 2 MG PO HSPRN PRN, TAB 11/04/24 Insulin Glargine (Basaglar Kwikpen) 100 Unit/Ml Inj, 20 UNIT SC HS, INJ 11/04/24 Ipratropium-Albuterol (COMBIVENT RESPIMAT) Respimat Aer, 1 IN QID, AER 11/04/24 Alendronate Sodium (Alendronate Sodium) 70 Mg Tab, 1 TAB PO QWEEKLY, #4 TAB 3 Refills 11/04/24 Citalopram Hydrobromide (Citalopram Hydrobromide) 20 Mg Tab, 20 MG PO DAILY, TAB 11/04/24 Furosemide (Furosemide) 20 Mg Tab, 20 MG GT DAILY, TAB 11/04/24 Wfjaffalzlp-Piarawlzccuo-Uxdbf (Trelegy Ellipta 200-62.5-25 Mcg/INH) 1 Aer Aer, 1 AER IN DAILY, AER 11/04/24 Albuterol Sulfate (VENTOLIN MDI) 90 Mcg Ih, 90 MCG IN Q4HPRN PRN, INH 11/04/24 Potassium Chloride (Potassium Chloride ER) 10 Meq Tab, 10 MEQ PO DAILY, TAB 11/04/24 Aspirin (Aspir-81) 81 Mg Tab, 1 TAB PO DAILY, #30 TAB 5 Refills 11/04/24 Plan/Recommendation 64F, no active cardiac complaints. Hyperglycemia. Incidental pericardial cyst. Will need outpatient follow up with periodic imaging. Cardiology Common Codes: [id number] INP/OBS CARE (Mod) GIULIANA JORDAN Nov 06, 2024 11:13 THEO POLO MD Nov 08, 2024 10:21
[2024-11-06] MEDS: OPTISON 3ml Vial for INJ IV ONE ×2 (15:07)
[2024-11-06] MEDS: MORPHINE SULFATE 4 MG/ML SYR/VIAL IV PRN (20:35)
[2024-11-07] VITALS (16 sets, daily range): BP systolic 122–138; BP diastolic 56–86; PULSE 57–85; RESP 14–18; TEMP 96.2–98; O2SAT 94–100
[2024-11-07] MEDS: predniSONE 20 MG TAB PO SCH (09:47)
--- NOTE | 2024-11-07 11:04 | DVHPN2 ---
Progress Note Date Seen: Nov 07, 2024 Medical Necessity Reason Pt with a Central, PICC or Fol: No Subjective Patient reports: No new complaints Review of Systems: HEENT:Normal, CVS:Normal, RESPIRATORY:Normal, GI:Normal, :Normal, MSK:Normal, NEURO:Normal Objective vital signs Vital Sign Date Time Temp Pulse Resp B/P (MAP) Pulse Ox O2 Delivery O2 Flow Rate FiO2 11/07/24 09:46 99 Nasal Cannula 2.0 11/07/24 09:46 28 11/07/24 09:00 97.0 57 16 127/66 (86) 97.0 Total Intake and Output 11/06/24 11/06/24 11/07/24 15:00 23:00 07:00 Intake Total 50 ml 300 ml 480 ml Output Total 0 ml Balance 50 ml 300 ml 480 ml medications Current Medications Medications Dose Ordered Sig/Yue Route Start Time Stop Time Status Last Admin Dose Admin Ondansetron HCl 4 mg Q4HP PRN IV 11/04/24 14:15 Docusate Sodium 100 mg BIDPRN PRN PO 11/04/24 14:15 Acetaminophen 650 mg Q6HP PRN PO 11/04/24 14:15 11/06/24 18:03 650 MG Diagnostic Test (Pha) 1 strip ACHS 11/04/24 17:00 11/07/24 06:09 1 STRIP Insulin Human Regular HS SC 11/04/24 22:00 11/06/24 23:12 10 UNITS Insulin Human Regular AC SC 11/04/24 17:00 11/07/24 06:06 9 UNITS Dextrose 50 ml UD PRN IV 11/04/24 14:15 Ipratropium [place] 0.5 mg Q6HWA NEB 11/04/24 18:00 11/07/24 11:03 0.5 MG Albuterol 2.5 mg Q6HWA NEB 11/04/24 18:00 11/07/24 11:02 2.5 MG Aspirin 81 mg DAILY PO 11/05/24 10:00 11/07/24 09:46 81 MG Insulin Glargine 20 units HS SC 11/04/24 22:00 11/06/24 23:13 20 UNITS Levothyroxine Sodium 150 mcg QAM PO 11/05/24 07:00 11/07/24 06:11 150 MCG Acetaminophen/ Hydrocodone Bitart 1 tab Q6HPRN PRN PO 11/04/24 20:30 11/05/24 06:34 1 TAB Azithromycin 500 mg DAILY PO 11/06/24 10:00 11/07/24 09:46 500 MG Ceftriaxone Sodium 50 ml @ 100 mls/hr DAILY@09 IV 11/06/24 09:00 11/07/24 09:47 100 MLS/HR Morphine Sulfate 2 mg Q4HPRN PRN IV 11/05/24 11:00 UNV Ketorolac Tromethamine 15 mg Q6HPRN PRN IV 11/05/24 11:00 11/10/24 10:59 11/07/24 05:17 15 MG Morphine Sulfate 2 mg Q4HPRN PRN IV 11/05/24 11:30 11/06/24 20:35 2 MG Guaifenesin/ Dextromethorphan 10 ml Q4HP PRN PO 11/05/24 12:15 11/06/24 20:33 10 ML Prednisone 20 mg DAILY PO 11/07/24 10:00 11/07/24 09:47 20 MG Examination: GENERAL:Normal, HEENT:Normal, NECK:Normal, LUNGS:Normal, CVS:Normal, ABDOMEN:Normal, MSK:Normal, SKIN:Normal, NEURO:Normal, :Normal laboratory and microbiology Laboratory Tests 11/06/24 05:25 Test 11/06/24 05:25 Range/Units Serum Glucose 396 H 74-106 mg/dL Microbiology Date/Time Source Procedure Growth Status 11/04/24 11:35 Blood Blood Culture - Preliminary NO GROWTH AFTER 48 HOURS OF INCUBATION. Resulted Problem List/Assessment/Plan Problem List/Assessment/Plan #1 s/p fall with chest pain/back pain: iv pain meds, ct chest #2 copd with exacerbation: steroids, bronchodilators #3 ? left pneumonia: iv antibiotics #4 obesity #5 uncontrolled dm: lantus, ssi #6 hypothyroidism: check tsh #7 large ?pericardial cyst: echo, cardio eval #8 h/o thyroid cancer-rib lesion: bone scan advance care planning- full code- time spent 18 mins Plan discussed with: Patient My Orders My Orders Orders - DAVID YOUSSEF MD Procedure Category Date Status Time Insulin Lantus PHA 11/07/24 Verified (Glargine) (Lantus) 22:00 Bone Whole Body NM 11/07/24 Verified 11:02 Date of Service: Nov 07, 2024 Billing Provider: DAVID YOUSSEF MD Common Visit Codes: [id number] INP/OBS CARE(HIGH) DAVID YOUSSEF MD Nov 07, 2024 11:04
--- NOTE | 2024-11-07 16:54 | DVHSR ---
APPROVED REPORT EXAM: Two-dimensional and M-mode echocardiogram with Doppler, color Doppler and Optison. Blood Pressure: 114/73 mmHg INDICATION ?pericardial cyst Contrast Details Amount Used: 1ST: 3mL(IV infiltrated) 2nd: 1mL RISK FACTORS Height: 5'3, Weight: 183 DIMENSIONS LVDd3.6 (3.8-5.7cm)LA (2D)3.4 (1.9-4.0cm)Aortic Root3.2 (2.0-3.7cm) LVDs2.4 (2.5-4.0cm)LA (MM) (1.9-4.0cm)Aortic Cusp Exc1.5 (1.5-2.0cm) EF (%) 60.0 (55-70%)Rt. Atrium3.5 (1.9-4.0cm)Asc. Aorta cm IVSd0.9 (0.7-1.1cm)RV (D)3.3 (1.8-2.4cm) PWd1.0 (0.7-1.1cm) Mitral Valve MitralMitral Stenosis E wave0.63m/sMV Mean GR.mmHg A wave0.87m/sMV Peak GR.28mmHg E/A ratio0.72D MVAcm2 DECEL [id number] 1/2 Timems Aortic Valve Aortic ValveAortic Stenosis V11.19m/Jesse Mean GR.4mmHg V21.31m/Jesse Peak GR.7mmHg LVOT Diameter2.0 (1.8-2.4cm)Doppler AVA2.85cm2 Pulmonic Valve V20.92m/s Tricuspid Valve TR Velocity2.45m/s [id number] Other Information Technically limited study due to optison used at end of study after worksheet Conclusion Technically good study. Sinus rhythm. Normal chamber sizes. Normal valves. EF of 60% with normal RV function. Dopplers unremarkable with mild TR. There is an echolucent structure at the inferior basal and medial segment of the left ventricle. It appears to be a cystic structure. It appears to be extra pericardial. There is no flow or Doppler s ignal within the cystic structure. It does not seem to be affected by myocardial contractility. Is does not impinge upon left ventricular filling. In the apical long axis view it measures approximate ly 2.7 cm x 3.3 cm. In the short axis view it also encompasses part of the mid and basal RV inferior wall. There appears to be some degree of septation observed in the mid inferior segment outside of the pericardium in the short axis view suggesting possible pleural involvement. CT imaging and/or ca rdiac MRI may prove useful in delineating the structure more efficiently. There is a minute pericardial effusion not hemodynamically significant. No masses or vegetations discernible.
--- NOTE | 2024-11-07 17:04 | DVHPN2 ---
Consult Progress Note Date Seen: Nov 07, 2024 Subjective Review of Systems: CVS:Normal, RESPIRATORY:Normal, NEURO:Normal Objective vital signs Vital Sign Date Time Temp Pulse Resp B/P (MAP) Pulse Ox O2 Delivery O2 Flow Rate FiO2 11/07/24 16:40 98.0 74 18 124/79 (94) 97 98.0 11/07/24 11:03 Nasal Cannula 2.0 11/07/24 11:03 28 Total Intake and Output 11/06/24 11/06/24 11/07/24 15:00 23:00 07:00 Intake Total 50 ml 300 ml 480 ml Output Total 0 ml Balance 50 ml 300 ml 480 ml medications Current Medications Medications Dose Ordered Sig/Yue Route Start Time Stop Time Status Last Admin Dose Admin Ondansetron HCl 4 mg Q4HP PRN IV 11/04/24 14:15 Docusate Sodium 100 mg BIDPRN PRN PO 11/04/24 14:15 Acetaminophen 650 mg Q6HP PRN PO 11/04/24 14:15 11/06/24 18:03 650 MG Diagnostic Test (Pha) 1 strip ACHS 11/04/24 17:00 11/07/24 11:45 1 STRIP Insulin Human Regular HS SC 11/04/24 22:00 11/06/24 23:12 10 UNITS Insulin Human Regular AC SC 11/04/24 17:00 11/07/24 11:45 12 UNITS Dextrose 50 ml UD PRN IV 11/04/24 14:15 Ipratropium [place] 0.5 mg Q6HWA NEB 11/04/24 18:00 11/07/24 11:03 0.5 MG Albuterol 2.5 mg Q6HWA NEB 11/04/24 18:00 11/07/24 11:02 2.5 MG Aspirin 81 mg DAILY PO 11/05/24 10:00 11/07/24 09:46 81 MG Levothyroxine Sodium 150 mcg QAM PO 11/05/24 07:00 11/07/24 06:11 150 MCG Acetaminophen/ Hydrocodone Bitart 1 tab Q6HPRN PRN PO 11/04/24 20:30 11/05/24 06:34 1 TAB Azithromycin 500 mg DAILY PO 11/06/24 10:00 11/07/24 09:46 500 MG Ceftriaxone Sodium 50 ml @ 100 mls/hr DAILY@09 IV 11/06/24 09:00 11/07/24 09:47 100 MLS/HR Morphine Sulfate 2 mg Q4HPRN PRN IV 11/05/24 11:00 UNV Ketorolac Tromethamine 15 mg Q6HPRN PRN IV 11/05/24 11:00 11/10/24 10:59 11/07/24 05:17 15 MG Morphine Sulfate 2 mg Q4HPRN PRN IV 11/05/24 11:30 11/06/24 20:35 2 MG Guaifenesin/ Dextromethorphan 10 ml Q4HP PRN PO 11/05/24 12:15 11/07/24 11:59 10 ML Prednisone 20 mg DAILY PO 11/07/24 10:00 11/07/24 09:47 20 MG Insulin Glargine 30 units HS SC 11/07/24 22:00 Examination: LUNGS:Normal, CVS:Normal, NEURO:Normal laboratory and microbiology Laboratory Tests 11/06/24 05:25 Test 11/06/24 05:25 Range/Units Serum Glucose 396 H 74-106 mg/dL Problem List/Assessment/Plan Problem List/Assessment/Plan Left pericardial lesion Mechanical fall injury with chest wall pain Insulin-dependent diabetes mellitus, HgbA1C 11.6% Thyroid cancer status post complete thyroidectomy COPD with home O2 dependence Obesity * Transthoracic echocardiogram revealed an EF of 60% with normal RV function. There is an echolucent structure at the inferior basal and medial segment of the left ventricle. It appears to be a cystic structure. It appears to be extra pericardial. There is no flow or Doppler signal within the cystic structure. It does not seem to be affected by myocardial contractility. Is does not impinge upon left ventricular filling. In the apical long axis view it measures approximately 2.7 cm x 3.3 cm. In the short axis view it also encompasses part of the mid and basal RV inferior wall. There appears to be some degree of septation observed in the mid inferior segment outside of the pericardium in the short axis view suggesting possible pleural involvement. CT imaging and/or cardiac MRI may prove useful in delineating the structure more efficiently. There is a minute pericardial effusion not hemodynamically significant. No masses or vegetations discernible. Plan/Recommendation (Dr. Witt) Case discussed with Dr. Witt. The patient who experienced a mechanical fall injury underwent a CT chest revealing a left pericardial hypodense lesion for which the patient underwent a transthoracic echocardiogram with contrast revealing an echolucent structure at the inferior basal and medial segment of the left ventricle appearing to be cystic in nature. Recommendations are for an outpatient cardiac MRI to further delineate the structure more efficiently. Given the patient is cardiac stable and this may be an incidental finding, there is no further in-patient work-up at this time. Kindly call with any questions or concerns. Thank you for allowing us to participate in this patient's care. This medical document was created using an electronic medical record system with voice recognition software and computerized dictation system. Although this document has been carefully reviewed, there might still be some phonetic and typographical errors. Occasional wrong-word or ``sound-alike substitutions may have occurred due to the inherent limitations of voice recognition software. These areas are purely typographical due to imperfections of the software programs and do not reflect any compromise in the patient's medical care. Please read the chart carefully and recognize, using context, where these substitutions have occurred. Plan discussed with: Patient, Other Date of Service: Nov 07, 2024 Billing Provider: GIULIANA JORDAN Cardiology Common Codes: [id number] HOSP CARE(High GIULIANA JORDAN Nov 07, 2024 17:04
[2024-11-07] MEDS: INSULIN LANTUS (GLARGINE) 1 /0.01ml (100units/ml) SC SCH (21:44)
[2024-11-08] VITALS (9 sets, daily range): BP systolic 107–143; BP diastolic 63–89; PULSE 50–85; RESP 15–20; TEMP 97.6–98.6; O2SAT 96–100
--- NOTE | 2024-11-08 10:22 | DVHDS2 ---
Discharge Summary Date of Admission Nov 04, 2024 at 14:03 Date of Discharge: Nov 08, 2024 Labs/Diagnostic Data: Laboratory Results Test 11/08/24 06:30 11/06/24 05:25 11/05/24 05:20 11/04/24 11:35 POC Glucose 202 mg/dl (70-106) White Blood Count 7.1 10^3/uL (4.4-10.8) Red Blood Count 4.47 10^6/uL (4.0-5.20) Hemoglobin 13.5 g/dL (12.2-16.2) Hematocrit 40.5 % (36.0-46.0) Mean Corpuscular Volume 90.7 fL (80.0-100.0) Mean Corpuscular Hemoglobin 30.2 pg (28.0-32.0) Mean Corpuscular Hemoglobin Concent 33.3 g/dL (32.0-36.0) Red Cell Distribution Width 13.2 % (11.8-14.3) Platelet Count 177 10^3/uL (140-450) Mean Platelet Volume 9.9 fL (6.9-10.8) Neutrophils (%) (Auto) 88.0 % (37.0-80.0) Lymphocytes (%) (Auto) 9.1 % (10.0-50.0) Monocytes (%) (Auto) 2.7 % (0.0-12.0) Eosinophils (%) (Auto) 0.1 % (0.0-7.0) Basophils (%) (Auto) 0.1 % (0.0-2.0) Neutrophils # (Auto) 6.2 10 ^3/uL (1.6-8.6) Lymphocytes # (Auto) 0.6 10 ^3/uL (0.4-5.4) Monocytes # (Auto) 0.2 10 ^3/uL (0-1.3) Eosinophils # (Auto) 0 10 ^3/uL (0-0.8) Basophils # (Auto) 0 10 ^3/uL (0-0.2) Nucleated Red Blood Cells 0.1 % Sodium Level 135 mmol/L (136-145) Potassium Level 5.0 mmol/L (3.5-5.1) Chloride Level 102 mmol/L (98-107) Carbon Dioxide Level 27 mmol/L (20-31) Anion Gap 6 (5-15) Blood Urea Nitrogen 18 mg/dL (9-23) Creatinine 0.94 mg/dL (0.550-1.02) Glomerular Filtration Rate Calc 67 mL/min (>90) BUN/Creatinine Ratio 19.1 (10.0-20.0) Serum Glucose 396 mg/dL (74-106) Calcium Level 10.9 mg/dL (8.7-10.4) Thyroid Stimulating Hormone (TSH) 0.29 uIU/mL (0.55-4.78) Hemoglobin A1c 11.6 % A1C (<5.7) Total Bilirubin 0.4 mg/dL (0.2-1.0) Aspartate Amino Transferase (AST) 13 U/L (13-40) Alanine Aminotransferase (ALT) 19 U/L (7-40) Alkaline Phosphatase 132 U/L (46-116) Total Protein 6.4 g/dL (5.7-8.2) Albumin 4.1 g/dL (3.2-4.8) Troponin I High Sensitivity 9 ng/L (</=34) Test 11/04/24 11:15 11/04/24 09:40 11/04/24 09:00 Lactic Acid Level 1.8 mmol/L (0.4-2.0) Urine Color Colorless (Yellow) Urine Clarity Clear (Clear) Urine pH 5.0 (5.0-9.0) Urine Specific [place] 1.028 (1.001-1.035) Urine Protein Negative (Negative) Urine Ketones Negative (Negative) Urine Blood Negative /uL (Negative) Urine Nitrite Negative (Negative) Urine Bilirubin Negative (Negative) Urine Urobilinogen Normal mg/dL (Negative) Urine Leukocyte Esterase Negative /uL (Negative) Urine RBC <1 /hpf (0 - 4) Urine Microscopic WBC 1 /HPF (0-5) Urine Squamous Epithelial Cells Few /hpf (<5) Urine Bacteria None seen /hpf (None Seen) Urine Glucose 4+ mg/dL (Normal) B-Type Natriuretic Peptide 85.42 pg/mL (0-100) Other Laboratory Tests 11/06/24 05:25 Brief Hx & Hospital Course: see dictated note Condition at Discharge: Fair Final Diagnosis/Problems List copd Discharge Disposition: Home Discharge Instruct/Medications Diet: Cardiac 2g Na,low cholest Activity: No Restrictions, As Tolerated Follow Up/Referral: fu with pcp Medications: resume home meds dc home after bone scan result Discharge Statement: "Patient was advised to return to the ER or call 911 if any headaches, dizziness, shortness of breath, chest pain, abdominal pain, bleeding, fevers, or worsening of medical condition. Patient was counseled about treatment plan, medications, possible side effects, patientverbalized understanding. All questions were answered to the best of my ability. This discharge took greater then 30 minutes in planning, reviewing documentation, counseling the patient, and discussing with other team members." ASSESSMENT ASSESSMENT Assessment copd Date of Service: Nov 08, 2024 Billing Provider: DAVID YOUSSEF MD Common Visit Codes: 25780-MSQ/OBS DISCH DAY >30min DAVID YOUSSEF MD Nov 08, 2024 10:22
--- NOTE | 2024-11-08 10:31 | DVHDS ---
DATE OF DISCHARGE: 11/08/2024 The patient is a 64-year-old lady who was admitted with history of fall and subsequent pain in the chest and shortness of breath. She has history of COPD, chronic respiratory failure, and diabetes mellitus. HOSPITAL COURSE: The patient had chest x-ray that showed a left basilar infiltrate. A subsequent CT of chest showed a left pericardial hypodense lesion. An echocardiogram was obtained that showed a cyst in the extra-pericardial area which did not seem to affect myocardial contractility. EF was 60%. The patient's blood cultures were negative. The patient's blood sugars were elevated, likely secondary to steroid use. The patient had also on the CT chest a sclerotic lesion on the seventh rib. She was to get a bone scan prior to discharge which she is refused. The patient has had previous history of thyroid cancer. The patient will now be discharged home after the bone scan to resume her home medications as well as to be on tramadol p.r.n. for pain. She will follow up with primary in one week. I gave her a copy of her CT and echo reports. FINAL DIAGNOSES: * Status post fall with chest and back pain. * COPD exacerbation. * Questionable left pneumonia. * Likely pericardial cyst. * Hypothyroidism with history of thyroid cancer. * Uncontrolled diabetes mellitus. * Obesity. Time spent in discharge planning and review of plan with the patient and nursing was 38 minutes. MD KENNEDY Marquez/LEONA TID: [id number] RECEIPT: [id number] MTDD
[2024-11-08] MEDS ORDERED: TRAM-626 PO (10:40)
== END 2024-11-08 13:30 | disposition home or self-care (01) | DRG 190 ==
LOC: ER 07:49 → MERGE 14:03 → OVERFLOW 14:03 → CENTRAL 16:46
PROVIDERS: ADMIT Internal Medicine; ATTEND Internal Medicine
DX: J44.0 Chronic obstructive pulmonary disease with (acute) lower respiratory infection (principal); J15.69 Pneumonia due to other Gram-negative bacteria; J15.9 Unspecified bacterial pneumonia; J44.1 Chronic obstructive pulmonary disease with (acute) exacerbation; E03.9 Hypothyroidism, unspecified; E11.65 Type 2 diabetes mellitus with hyperglycemia; G89.29 Other chronic pain; H40.9 Unspecified glaucoma; M54.9 Dorsalgia, unspecified; Z68.33 Body mass index [BMI] 33.0-33.9, adult; T38.0X5A Adverse effect of glucocorticoids and synthetic analogues, initial encounter; M81.0 Age-related osteoporosis without current pathological fracture; E66.9 Obesity, unspecified; Z79.4 Long term (current) use of insulin; Z80.41 Family history of malignant neoplasm of ovary; Z85.850 Personal history of malignant neoplasm of thyroid; Z87.891 Personal history of nicotine dependence; Z88.7 Allergy status to serum and vaccine; Z90.710 Acquired absence of both cervix and uterus; Z99.81 Dependence on supplemental oxygen; Y92.89 Other specified places as the place of occurrence of the external cause; Z98.42 Cataract extraction status, left eye; Z98.41 Cataract extraction status, right eye; Z79.82 Long term (current) use of aspirin
CPT/HCPCS: 36415; 71045; 71250; 80048; 80053; 81001; 82962; 83036; 83605; 83880; 84443; 84484; 85025; 87040; 93306; 94640; 96365; 96372; 96375; 99291; G0378; J0692; J1815; J1885; Q9956

== ENCOUNTER 2024-12-28 08:09 | Outpatient (CLI) | payer OTHER, MEDICAID ==
[~2024-12-28] VITALS: Ht 162.6 cm; Wt 74.4 kg
[~2024-12-28 08:09] MED LIST changes: +ALBUAER3 IN; -ALBUTEROL SULF 2.5 MG/0.5ML(0.5%) NEB SOLN ONE; +ALEN70TA74 PO; +ASPI1TAB20 PO; +CITA-77 PO; +FLUT1AER17 IN; +FURO20TA4 GT; +INSU1INJ19 SC; +IPRAAER6 IN; +LEVO125T7 PO; +POTA-228 PO; -SODIUM CHLORIDE 0.9 % NEB SOLN 3ML NEB ONE; +TIZA-206 PO; +TRAM-626 PO
[2024-12-28] MEDS ORDERED: ADENOSINE 90 MG/30 ML INJ IV ONE (08:54)
[2024-12-28] MEDS ORDERED: ADENOSINE 62 MG in GIVE UN-DILUTED 0 ML IV ONE (09:00)
== END 2024-12-28 17:00 | disposition home or self-care (01) ==
LOC: Rad HDHVI 08:09
PROVIDERS: ATTEND Internal Medicine Cardiovascular Disease
DX: I44.30 Unspecified atrioventricular block (principal); R00.1 Bradycardia, unspecified; I25.2 Old myocardial infarction; R06.02 Shortness of breath; E78.00 Pure hypercholesterolemia, unspecified; R07.89 Other chest pain; E11.9 Type 2 diabetes mellitus without complications; Z82.49 Family history of ischemic heart disease and other diseases of the circulatory system
CPT/HCPCS: 78452; 93017; A9500; J0153